=== PATIENT | female | born 2000 | race Caucasian/White ===

== ENCOUNTER 2020-11-05 19:53 | Emergency (ER) | payer OTHER ==
[~2020-11-05] VITALS: Ht 149.9 cm; Wt 37.2 kg
[2020-11-05 20:06] VITALS: BP 113/87
[2020-11-05] MEDS ORDERED: VYVANSE30 MG PO (20:11)
[2020-11-05] MEDS ORDERED: NEXPLANON68 MG SUBQ (20:11)
[2020-11-05 20:14] LABS: URINE BILIRUBIN NEGATIVE (Negative); URINE BLOOD 2+ (Negative); URINE CLARITY CLEAR; URINE COLOR YELLOW; URINE GLUCOSE-RANDOM* NEGATIVE (Negative); URINE KETONES NEGATIVE (Negative); URINE NITRITE-REFLEX NEGATIVE (Negative); URINE PROTEIN (DIPSTICK) 2+ (Negative)
[2020-11-05 20:17] LABS: URINE LEUKOCYTES-REFLEX 3+ (Negative)
[2020-11-05] MEDS ORDERED: PHENAZOPYRIDIN200 M2 PO (20:22)
[2020-11-05] MEDS ORDERED: KEFLEX500 M1 PO (20:22)
[2020-11-05 20:44] LABS: SQUAMOUS >10 Many /LPF (0-3); URINE WBC-REFLEX >25 Many /HPF (0-5)
[2020-11-05 20:45] LABS: AMORPHOUS URATES Moderate /LPF (None Seen); CASTS None Seen /LPF (None Seen); URINE RBC 3-10 Few /HPF (0-2)
== END 2020-11-05 20:35 | disposition home or self-care (01) ==
LOC: ER 19:53
PROVIDERS: Nurse Practitioner Family
DX: N39.0 Urinary tract infection, site not specified (principal); Z79.899 Other long term (current) drug therapy